=== PATIENT | male | born 1955 | race Caucasian/White ===

== ENCOUNTER 2020-12-27 08:02 | Outpatient (CLI) | payer MEDICARE | END 2020-12-27 08:03 | disposition home or self-care (01) | LOC: PET 08:02 | PROVIDERS: ATTEND Internal Medicine Critical Care Medicine | DX: R91.1 Solitary pulmonary nodule (principal); R91.8 Other nonspecific abnormal finding of lung field; E27.8 Other specified disorders of adrenal gland | CPT/HCPCS: 78815; A9552 ==

== ENCOUNTER 2021-01-08 08:42 | Day surgery (SDC) | payer MEDICARE ==
[2021-01-07 08:58] VITALS: BMI 23.9
[2021-01-08 08:52] LABS: #Eosinphils 0.1 thou/uL (0.0-0.7); #Lymphocytes 1.3 thou/uL (1.20-3.40); #Monocytes 0.4 thou/uL (0.11-0.59); #Neutrophils 3.6 thou/uL (1.40-6.50); %Basophils 0.4 % (0.0-1.0); %Eosinophils 2.7 % (0.0-10.0); %Monocytes 7.2 % (0.0-10.0); %Neutrophils 65.8 % (42.0-75.0); Hemoglobin 11.7 g/dL (14.0-18.0); Mean Corpuscular HGB CONC 35.5 g/dL (32.0-36.0); Mean Corpuscular Hemoglobin 33.5 pg (27.0-31.0); Mean Corpuscular Volume 94.2 fL (78.0-98.0); Mean Platelet Volume 6.2 fL (7.4-10.4); Platelet Count 97 thou/uL (130-400); RBC Distribution Width 11.2 % (11.5-14.5); White Blood Cell (WBC) Count 5.4 thou/uL (4.8-10.8)
[2021-01-08 08:55] LABS: Prothrombin Time 13.5 sec (12.0-14.7)
[2021-01-08 08:56] LABS: PTT 26.8 sec (22.9-36.1)
[2021-01-08 09:56] VITALS: BP 175/79; TEMP 97.6
[2021-01-08] MEDS ORDERED: Midazolam HCl 2 mg/2 ml Vial ONE (10:06)
[2021-01-08] MEDS ORDERED: Fentanyl 100 MCG/2 ML VIAL ONE (10:06)
[2021-01-08] MEDS ORDERED: Sodium Bicarbonate 2.5 MEQ/5 ML VIAL ONE (10:07)
== END 2021-01-08 14:10 | disposition home or self-care (01) ==
LOC: CT 08:42
PROVIDERS: ATTEND Internal Medicine Critical Care Medicine
PROC: 0BBC3ZX Excision of Right Upper Lung Lobe, Percutaneous Approach, Diagnostic (ICD-10-PCS; principal; 2021-01-08)
PROC: 0GB23ZX Excision of Left Adrenal Gland, Percutaneous Approach, Diagnostic (ICD-10-PCS; 2021-01-08)
DX: C34.11 Malignant neoplasm of upper lobe, right bronchus or lung (principal); E27.8 Other specified disorders of adrenal gland; E03.9 Hypothyroidism, unspecified; I12.9 Hypertensive chronic kidney disease with stage 1 through stage 4 chronic kidney disease, or unspecified chronic kidney disease; N18.4 Chronic kidney disease, stage 4 (severe); E78.5 Hyperlipidemia, unspecified; Z87.891 Personal history of nicotine dependence; Z79.899 Other long term (current) drug therapy
CPT/HCPCS: 32408; 49180; 71045; 77012; 85025; 85610; 85730; 88305; 88333; J2250; J3010

== ENCOUNTER 2021-02-08 12:42 | Outpatient (CLI) | payer MEDICARE | END 2021-02-08 12:43 | disposition home or self-care (01) | LOC: BICRAD 12:42 | PROVIDERS: ATTEND Thoracic Surgery (Cardiothoracic Vascular Surgery) | DX: J90 Pleural effusion, not elsewhere classified (principal); J98.4 Other disorders of lung | CPT/HCPCS: 71046 ==

== ENCOUNTER 2021-04-22 08:19 | Outpatient (CLI) | payer MEDICARE | END 2021-04-22 08:20 | disposition home or self-care (01) | LOC: BICRAD 08:19 | PROVIDERS: ATTEND Thoracic Surgery (Cardiothoracic Vascular Surgery) | DX: J90 Pleural effusion, not elsewhere classified (principal); Z98.890 Other specified postprocedural states | CPT/HCPCS: 71046 ==

== ENCOUNTER 2021-05-03 07:45 | Day surgery (SDC) | payer MEDICARE ==
[2021-05-02 14:43] VITALS: BMI 22.8
[2021-05-03] MEDS ORDERED: ceFAZolin 2 GM/DEX 5% 100 ML BAG ONE (08:42)
[2021-05-03] MEDS ORDERED: Fentanyl 100 MCG/2 ML VIAL ONE (08:57)
[2021-05-03] MEDS ORDERED: PROPOFOL 20 ML ONE (08:58)
[2021-05-03] MEDS ORDERED: Lidocaine 1% (PF) 30 ML VIAL ONE (09:54)
[2021-05-03] MEDS ORDERED: Lidocaine 2% PF 5 ML VIAL ONE (10:09)
[2021-05-03] MEDS ORDERED: Lidocaine 1% PF 5 ML VIAL ONE (10:28)
== END 2021-05-03 11:30 | disposition home or self-care (01) ==
LOC: SDC 07:45
PROVIDERS: ATTEND Thoracic Surgery (Cardiothoracic Vascular Surgery)
PROC: 0BPQ00Z Removal of Drainage Device from Pleura, Open Approach (ICD-10-PCS; principal; 2021-05-03)
DX: R91.1 Solitary pulmonary nodule (principal); C34.11 Malignant neoplasm of upper lobe, right bronchus or lung; J90 Pleural effusion, not elsewhere classified; E03.9 Hypothyroidism, unspecified; I12.9 Hypertensive chronic kidney disease with stage 1 through stage 4 chronic kidney disease, or unspecified chronic kidney disease; N18.4 Chronic kidney disease, stage 4 (severe); E78.2 Mixed hyperlipidemia; Z87.891 Personal history of nicotine dependence; Z79.899 Other long term (current) drug therapy; Z98.52 Vasectomy status; Z98.890 Other specified postprocedural states; Z85.828 Personal history of other malignant neoplasm of skin
CPT/HCPCS: J2001; J2704; J3010

== ENCOUNTER 2021-10-23 07:42 | Day surgery (SDC) | payer MEDICARE ==
[2021-10-21 12:07] VITALS: BMI 21.5
[2021-10-23] MEDS ORDERED: Acetaminophen 500 MG TAB ONE ×2 (08:46)
[2021-10-23] MEDS ORDERED: Lidocaine 1% w/Epinephrine 1:100K 20 ML VIAL ONE (09:22)
[2021-10-23] MEDS ORDERED: Bupivacaine 0.25% 10 ML VIAL ONE (09:22)
[2021-10-23] MEDS ORDERED: Heparin 10,000 UNITS/ 10 ML VIAL ONE (09:22)
[2021-10-23] MEDS ORDERED: ceFAZolin (BATCH) 2 GM/100 ML BAG ONE (09:29)
[2021-10-23] MEDS ORDERED: Lidocaine 1% PF 5 ML VIAL ONE (09:42)
[2021-10-23] MEDS ORDERED: Dexamethasone 20 MG/5 ML VIAL ONE (09:42)
[2021-10-23] MEDS ORDERED: Glycopyrrolate 0.2 MG/ML 5 ML SYRINGE ONE (09:42)
[2021-10-23] MEDS ORDERED: PROPOFOL 200 MG/20 ML VIAL ONE (09:42)
[2021-10-23] MEDS ORDERED: Ondansetron PF 4 MG/2 ML Vial ONE (09:42)
[2021-10-23] MEDS ORDERED: Rocuronium Bromide 10 MG/ML (10ML VIAL) ONE (09:42)
== END 2021-10-23 11:43 | disposition home or self-care (01) ==
LOC: SDC 07:42
PROVIDERS: ATTEND Specialist
PROC: 0WHG43Z Insertion of Infusion Device into Peritoneal Cavity, Percutaneous Endoscopic Approach (ICD-10-PCS; principal; 2021-10-23)
PROC: 0DQU4ZZ Repair Omentum, Percutaneous Endoscopic Approach (ICD-10-PCS; 2021-10-23)
DX: I12.0 Hypertensive chronic kidney disease with stage 5 chronic kidney disease or end stage renal disease (principal); E11.22 Type 2 diabetes mellitus with diabetic chronic kidney disease; N18.5 Chronic kidney disease, stage 5; E78.5 Hyperlipidemia, unspecified; E03.9 Hypothyroidism, unspecified; Z85.118 Personal history of other malignant neoplasm of bronchus and lung; Z87.891 Personal history of nicotine dependence; Z79.890 Hormone replacement therapy; Z79.899 Other long term (current) drug therapy; Z88.4 Allergy status to anesthetic agent; Z90.2 Acquired absence of lung [part of]
CPT/HCPCS: J0690; J1100; J1644; J2405; J2704; S0020

== ENCOUNTER 2021-10-31 13:00 | Outpatient (CLI) | payer MEDICARE | END 2021-10-31 13:01 | disposition home or self-care (01) | LOC: BICRAD 13:00 | PROVIDERS: ATTEND Internal Medicine Nephrology | DX: N18.5 Chronic kidney disease, stage 5 (principal) | CPT/HCPCS: 71046 ==

== ENCOUNTER 2023-02-20 11:06 | Outpatient (CLI) | payer MEDICARE | END 2023-02-20 11:07 | disposition home or self-care (01) | LOC: SCSMRI 11:06 | PROVIDERS: ATTEND Internal Medicine | DX: C34.11 Malignant neoplasm of upper lobe, right bronchus or lung (principal); D69.6 Thrombocytopenia, unspecified; I67.82 Cerebral ischemia; G93.6 Cerebral edema; G93.89 Other specified disorders of brain; Z79.899 Other long term (current) drug therapy | CPT/HCPCS: 70551 ==

== ENCOUNTER 2023-03-18 09:57 | Outpatient (CLI) | payer MEDICARE ==
[~2023-03-18 09:57] MED LIST: Iopamidol 370 76% 100 ML VIAL ONE
== END 2023-03-18 09:58 | disposition home or self-care (01) ==
LOC: PET 09:57
PROVIDERS: ATTEND Internal Medicine
DX: C34.11 Malignant neoplasm of upper lobe, right bronchus or lung (principal); R91.8 Other nonspecific abnormal finding of lung field
CPT/HCPCS: 70470; 78815; A9552

== ENCOUNTER 2023-07-14 07:01 | Outpatient (CLI) | payer MEDICARE ==
[2023-07-14] MEDS ORDERED: Iopamidol 370 76% 100 ML VIAL ONE (12:48)
== END 2023-07-14 07:02 | disposition home or self-care (01) ==
LOC: CT 07:01
PROVIDERS: ATTEND Internal Medicine
DX: C34.11 Malignant neoplasm of upper lobe, right bronchus or lung (principal); C78.1 Secondary malignant neoplasm of mediastinum; M81.0 Age-related osteoporosis without current pathological fracture; G93.6 Cerebral edema
CPT/HCPCS: 70470; 71260

== ENCOUNTER → 2023-09-01 | Day surgery (SDC) | payer MEDICARE ==
[2023-08-31 10:55] VITALS: BMI 20.8
[~2023-09-01] MED LIST changes: +Acetaminophen 500 MG TAB ONE; +Bupivacaine 0.25% HCL 30 ML VIAL ONE; +CEFAZOLIN 2 GM VIAL ONE; +Dexamethasone 4 mg/ml Vial ONE; +EPINEPHrine 1 MG/ML VIAL ONE; -Iopamidol 370 76% 100 ML VIAL ONE; +Ketorolac Tromethamine 30 MG (1 mL) VIAL ONE; +Lidocaine 1% (PF) 30 ML VIAL ONE; +Lidocaine 1% PF 5 ML VIAL ONE; +Lidocaine 2% PF 5 ML VIAL ONE; +Ondansetron PF 4 MG/2 ML Vial ONE; +PROPOFOL 20 ML ONE; +Sodium Chloride 0.9% 100 ML ONE; +ePHEDrine Sulfate 50 MG/10 ML VIAL ONE
== END ==
LOC: SDC 06:02
PROVIDERS: ATTEND Specialist
PROC: 0JH63WZ Insertion of Totally Implantable Vascular Access Device into Chest Subcutaneous Tissue and Fascia, Percutaneous Approach (ICD-10-PCS; principal; 2023-09-01)
DX: C34.11 Malignant neoplasm of upper lobe, right bronchus or lung (principal); I10 Essential (primary) hypertension; N19 Unspecified kidney failure; E03.9 Hypothyroidism, unspecified; K75.9 Inflammatory liver disease, unspecified; Z98.890 Other specified postprocedural states; Z79.890 Hormone replacement therapy; Z79.899 Other long term (current) drug therapy; Z88.8 Allergy status to other drugs, medicaments and biological substances; Z91.041 Radiographic dye allergy status
CPT/HCPCS: 36561; 71045; 93005; J0171; 93010; C1788; J0665; J1100; J1642; J1885; J2001; J2405; J2704; J3490

== ENCOUNTER 2023-11-18 08:10 | Outpatient (CLI) | payer MEDICARE | END 2023-11-18 08:11 | disposition home or self-care (01) | LOC: BICCT 08:10 | PROVIDERS: ATTEND Internal Medicine | DX: C34.90 Malignant neoplasm of unspecified part of unspecified bronchus or lung (principal); R51.9 Headache, unspecified; J90 Pleural effusion, not elsewhere classified; I25.10 Atherosclerotic heart disease of native coronary artery without angina pectoris; S22.039A Unspecified fracture of third thoracic vertebra, initial encounter for closed fracture; E27.8 Other specified disorders of adrenal gland; N28.89 Other specified disorders of kidney and ureter; R91.8 Other nonspecific abnormal finding of lung field; G95.89 Other specified diseases of spinal cord; R59.0 Localized enlarged lymph nodes; Z98.890 Other specified postprocedural states | CPT/HCPCS: 70470; 71260; 74177 ==

== ENCOUNTER 2024-01-04 08:02 | Outpatient (CLI) | payer MEDICARE ==
[2024-01-04] MEDS ORDERED: Iopamidol 370 76% 100 ML VIAL ONE (10:13)
== END 2024-01-04 08:03 | disposition home or self-care (01) ==
LOC: BICCT 08:02
PROVIDERS: ATTEND Internal Medicine
DX: C34.11 Malignant neoplasm of upper lobe, right bronchus or lung (principal); C77.1 Secondary and unspecified malignant neoplasm of intrathoracic lymph nodes; R91.8 Other nonspecific abnormal finding of lung field; I65.22 Occlusion and stenosis of left carotid artery
CPT/HCPCS: 70491; 71260; 74177; Q9967